=== PATIENT | male | born 2005 | race Caucasian/White ===

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

== ENCOUNTER → 2024-09-30 | Outpatient (CLI) | payer OTHER, SELFPAY ==
--- NOTE | 2024-09-30 10:14 | RAD_ITS ---
PROCEDURE: FOOT MIN 3 VIEWS 09/30/2024 REASON FOR EXAM: PAIN TECHNIQUE: FOOT MIN 3 VIEWS COMPARISON: None FINDINGS: Three views of the left foot demonstrate normal mineralization of the osseous structures. There are no fractures or dislocations. Joint spaces are well preserved. No appreciable soft tissue swelling is seen. RAD/Foot min 3 Views IMPRESSION: Unremarkable left foot study. Reading Location: [id number]
--- OUTSIDE RECORDS SUMMARY | 2024-09-30 11:58 | XMS RPT_ITS | CCD ---
Author Organization [facility] Care Team Providers Care Post Acute Care Registered Nurse Name Role Phone Melissa King Attending Unavailable Leonardo Casanova Primary Care Unavailable Leonardo Casanova Referring Unavailable Leonardo Casanova Attending Unavailable Leonardo Casanova Primary Care Unavailable Medications Current Medications Medication Drug Class(es) Dates Sig (Normalized) Sig (Original) tobramycin 3 mg/ml ophthalmic solution (1 source) Aminoglycoside Antibacterial Start: 11-29-2020 take 0.3 drop(s) into the eye(s) every two hours Tobramycin (Tobrex) 0.3 % drops Active 1 DRP OPHTHALMIC Q2H 5 November 29, 2020 12:00am to right eye for 5 days while awake Completed/Discontinued Medications Medication Drug Class(es) Dates Sig (Normalized) Sig (Original) acetaminophen 33.3 mg/ml / dextromethorphan hydrobromide 1 mg/ml / doxylamine succinate 0.417 mg/ml oral solution (1 source) Uncompetitive P-rnxack-M-aspartat e Receptor Antagonist, Sigma-1 Agonist Start: 12-07-2018 End: 11-29-2020 take 1 mL by mouth once Brclczeafi-Al-Kky taminophen (Cough-Sore Throat Night) 12.5-30-1,000 mg/30 mL liquid Discontinued 30 ML PO ONCE December 07, 2018 12:00am November 29, 2020 8:30am azithromycin 250 mg oral tablet (1 source) Macrolide Antimicrobial Start: 12-07-2018 End: 11-29-2020 Azithromycin Discontinued 0 PO .COMPLEX 6 December 07, 2018 12:00am November 29, 2020 8:30am take 500 mg today (day 1), then 250 mg for 4 days (days 2-5) PO Problems Problem Classification Problem Date Documented Da te Episodic/Chronic Inflammation; infection of eye (except that caused by tuberculosis or sexually transmitteddisease) (1 source) Acute conjunctivitis; Translations: [Unspecified acute conjunctivitis, right eye] 11-29-2020 Episodic Other screening for suspected conditions (not mental disorders or infectious disease) (1 source) Encounter for screening for diseases of the blood and blood-forming organs and certain disorders involving the immune mechanism; Translations: [Encounter for screening for diseases of the blood and blood-forming organs and certain disorders involving the immune mechanism] Onset: 10-13-2022 Episodic Otitis media and related conditions (1 source) Otitis media; Translations: [Otitis media, unspecified, unspecified ear] 12-07-2018 Episodic Unclassified (1 source) Contact with and (suspected) exposure to COVID-19; Translations: [Contact with and (suspected) exposure to COVID-19] Onset: 10-21-2021 Results Test Name Value Interpretation Reference Range Facility Sickle Hgb Solubilityon 07-16 HgbSOL,SICKLE Negative Normal Negative [facility] Comment on above: Result Comment: Sinc e a variety of conditions and other abnormal hemoglobins in addition to Hemoglobin S may give false- positive results, positive Hemoglobin Solubility tests should be confirmed by hemoglobin fractionation testing. Performed at: [facility] [id number] Lens Inspector: John Uribe PhD, Phone: [phone] Performed By: #### L [id number] #### [facility] [address] [place] [address], [id number] Hemoglobin S Solubility test Ql (Bld)Ordered By: Melissa King on 08-08-2022 Hemoglobin S Ql (Bld) Negative Negative [facility] Comment on above: Since a variety of c onditions and other abnormalhemoglobins in addition to Hemoglobin S may give false-positive results, positive Hemoglobin Solubility testsshould be confirmed by hemoglobin fractionation testing.Performed at: [email or web address] [address] [id number] Director: John Uribe PhD, Phone: [phone] COVID 19, [facility](RT COLLECT )on 10-16-2021 SARS-CoV-2 (COVID-19) RNA GARO+probe Ql (Unsp spec) Not detected Normal Not Detect [facility] Comment on above: Result Comment: Norm al Reference Range: Not Detected Method:(RT-PCR) real-time reverse transcriptase PCR [employer] Instrument *The Food and Drug Administration (FDA) has issued an Emergency Use Authorization (EAU) for the ANITA SARS-CoV-2 Assay for the rapid detection of the virus that causes COVID-19. This test has been validated, but the FDAs independent review of this validation is pending. *Negative results do not preclude infection and should not be used as the sole basis for treatment or patient management. Optimum specimen types and timing for peak viral levels during infections caused by SARS-CoV-2 have not been determined. Collection of multiple specimens from the same patient may be necessary to detect the virus. The possibility of a false negative result should be considered if the patient has clinical presentation or has had recent exposure. Performed By: #### L [id number] #### [facility] [address] [place], [address] Encounters Encounter Date Encounter Type Care Provider Facility Start: 08-08-2022 End: 08-08-2022 ambulatory Melissa King [facility] Work Phone: Start: 08-08-2022 End: 08-08-2022 Patient encounter procedure [facility] Start: 10-16-2021 End: 10-16-2021 ambulatory Leonardo Casanova Facility:[facility] Payers Date Payer Category Payer Self-pay [id number] 2021 Unknown [id number] Unknown ANTHEM [id number] Unknown [id number] Unknown [id number] Social History Date Type Detail Facility [facility]: [facility] Start: 2005 Sex Assigned At Male [facility] Evaluation note Note Date & Type Note Facility Evaluation note No assessment information availa ble [facility] Work Phone: Summary Purpose Family History No Family History Records Found Advance Directives No Advanced Directives Records Found Additional Source Comments Care Teams (unrecognized sec tion and content) Team Status: Active Member Role Status Dates Dr. Leonardo Casanova MD Family Provider Active Dr. Leonardo Casanova MD Primary Care Provider Activ e Team Status: Inactive Member Role Status Dates Dr. Leonardo Casanova MD Primary Care Provider Activ e DEION Mcarthur Attending Provider Active Goals (unrecognized section and content) Goals may be documented in a n alternate section (unrecognized sect ion and content) No Status Records Found INFORMATION SOURCE (unrecogn ized section and content) DATE CREATED AUTHOR 10/13/2022 [facility] FOR RECORDS PERTAINING TO PATIENTS WHO ARE OR HAVE BEEN ENROLLED IN A CHEMICAL DEPENDENCY/SUBSTANCEABUSE PROGRAM, SOME INFORMATION MAY BE OMITTED. This clinical summary was aggregated from multiple sources. Caution should be exercised in using it in the provision of clinical care. This summary normalizes information from multiple sources, and as a consequence, information in this document may materially change the coding, format and clinical context of patient data. In addition, data may be omitted in some cases. CLINICAL DECISIONS SHOULD BE BASED ON THE PRIMARY CLINICAL RECORDS. [employer] provides no warranty or guarantee of the accuracy or completeness of information in this document.
== END | disposition home or self-care (01) ==
LOC: MTLAB 09:59 → MTRAD 10:13
PROVIDERS: PCP Family Medicine; Referring Provider Family Medicine; Visit Provider Family Medicine
DX: M79.672 Pain in left foot (principal)
CPT/HCPCS: 73630